=== PATIENT | male | born 1945 | race Caucasian/White ===

== ENCOUNTER 2025-06-14 08:55 | Outpatient (AMB) | payer OTHER, SELFPAY ==
--- NOTE | 2025-06-14 08:57 | MHC.PC.OV ---
Vital Signs 06/14/25 08:59 Height 5 ft 8.11 in Weight 190 lb BMI 28.8 BP 160/77 H Respiration 16 Pulse 88 Pulse Source Pulse Oximeter Temp 97.8 F Temp Source Temporal Artery Scan Pulse Oximetry (%) 98 Oxygen Delivery Method Room Air Intake Visit Reasons: Establish Care/ Dr. Dowell Sales Department Manager Required: No Accompanied by: Self / Same As Patient Allergies No Known Allergies Allergy (Verified 06/14/25 08:57) Tobacco use date assessed: 06/14/25 Fall risk assessment: No Falls in past year Last assessed Fall Risk: 06/14/25 Dental Screening Dental Screen Date: 06/14/25 Did you have a dental visit in the last 12 months?: No Did you have a dental problem in the last 6 months where you did not have access to dental care?: No Was dental information given to patient?: Patient has dentist (pt has dentures) COUNT INCLUDES [facility] Medical History (Updated 06/14/25 @ 09:39 by Eduardo Alcantar MD) COPD (chronic obstructive pulmonary disease) Essential hypertension Atrial fibrillation Family History (Updated 06/14/25 @ 09:05 by KRAIG Che) Father No problems noted. Mother Meningitis Social History (Updated 06/14/25 @ 09:06 by KRAIG Che) Housing: Apartment Alcohol intake: current Alcohol intake frequency: does not drink Patient Tobacco Use Status: Former Tobacco user service: No Current occupational status: retired Cognitive needs: No Hearing needs: Yes (b/l hearing aids ) Vision needs: Yes (rx glasses) Questionnaire PHQ-9 Over the last 2 weeks, how often have you been bothered by any of the following problems? 1. Little interest or pleasure in doing things: not at all 2. Feeling down, depressed, or hopeless: not at all 3. Trouble falling or staying asleep, or sleeping too much: not at all 4. Feeling tired or having little energy: not at all 5. Poor appetite or overeating: not at all 6. Feeling bad about yourself - or that you are a failure or have let yourself or your family down: not at all 7. Trouble concentrating on things, such as reading the newspaper or watching television: not at all 8. Moving or speaking so slowly that other people could have noticed. Or the opposite - being so fidgety or restless that you have been moving around a lot more than usual: not at all 9. Thoughts that you would be better off or of hurting yourself in some way: not at all Total score: 0 Source: Developed by Drs. Kit Tan, Zuleika Lopez, Minor Velasquez and colleagues, with an educational pritesh from [employer]. Thrive Questionnaire Date Thrive assessed: 06/14/25 I am a: Patient What is your living situation today?: I have a steady place to live Within the past 12 months, did the food you bought not last and you didn't have the money to get more?: Never true Within the past 12 months, did you worry whether your food would run out before you got money to buy more?: Never true Do you have trouble paying for medicines?: No Do you have trouble getting transportation to medical appointments?: No Do you have trouble paying your heating and electricity bill?: No Do you have trouble taking care of your child, family member or friend?: No Do you have trouble with day-to-day activities such as bathing, preparing meals, shopping, managing finances, etc.?: No Are you currently unemployed and looking for a job?: No Are you interested in more education?: No Please select the resources that you would like help with: None THRIVE Score: 0 AUDIT C Alcohol Use Questionnaire (AUDIT-C) 1. How often do you have a drink containing alcohol?: Never 3. How often do you have six or more drinks on one occasion?: Never Total Score: 0 TL-7 AMB Questionnaire TL-7 Date TL - 7 assessed: 06/14/25 Feeling nervous, anxious, or on edge: 0 = Not at all Not being able to stop or control worryin = Not at all Worrying too much about different things: 0 = Not at all Trouble relaxin = Not at all Being so restless that it is hard to sit still: 0 = Not at all Becoming easily annoyed or irritable: 0 = Not at all Feeling afraid as if something awful might happen: 0 = Not at all Total TL-7 score (0-4 normal; 5-9 mild; 10-14 moderate; 15-21 severe): 0 Source: Developed by Drs. Kit Tan, Zuleika Lopez, Minor Velasquez and colleagues, with an educational pritesh from [employer]. Physical exam (Primary Care) Vital Signs: Last Vital Signs Temp 97.8 F 06/14/25 08:59 Pulse 88 06/14/25 08:59 Resp 16 06/14/25 08:59 BP 160/77 H 06/14/25 08:59 Pulse Ox 98 06/14/25 08:59 Oxygen Delivery Method Room Air 06/14/25 08:59 BMI result Body Mass Index 28.8 Tobacco/Smoking Status: Tobacco use Status Tobacco use date assessed 06/14/25 06/14/25 09:11 Patient Tobacco Use Status Former Tobacco user 06/14/25 09:11 PHQ-9: PHQ-9 Score PHQ-9: Total score 0 06/14/25 09:11 Thrive Assessment: Date of Thrive Assessment Date Thrive assessed 06/14/25 06/14/25 09:11 Coding Level of Care Code New Pt Level 4 (74736) Complex EM visit Add On G2211 Diagnoses COPD (chronic obstructive pulmonary disease) J44.9 Essential hypertension I10 Atrial fibrillation I48.91 Assessment & Plan Assessment & Plan (1) COPD (chronic obstructive pulmonary disease): Code(s): J44.9 - Chronic obstructive pulmonary disease, unspecified Category: Medical Plan: Budesonide called in. Pulmonary consult as per patients request (2) Essential hypertension: Code(s): I10 - Essential (primary) hypertension Category: Medical Plan: Metoprolol increased to 100 mg once a day (3) Atrial fibrillation: Comment: xarelto is very expensive, will try eliquis Code(s): I48.91 - Unspecified atrial fibrillation Category: Medical Plan: History of Present Illness - The patient is a 79-year-old male presenting with management of pacemaker dependency, COPD, severe asthma, atrial fibrillation, and hypertension. - Pacemaker dependency: The patient requires regular monitoring of his pacemaker, which is currently being managed remotely from [place]. He is seeking local cardiology care for ongoing monitoring and management. - Chronic Obstructive Pulmonary Disease (COPD) and severe asthma: The patient has a history of severe asthma and COPD, requiring regular use of rescue inhalers and budesonide, which he has run out of. He has been relying on Ventolin and rescue inhalers due to the prescription. - Atrial fibrillation: The patient has a history of atrial fibrillation and is currently on apixaban, a blood thinner, following a heart ablation. He is exploring more affordable anticoagulant options due to the high cost of his current medication. - Hypertension: The patient has a history of hypertension, previously managed with 100 mg of metoprolol, which was reduced to 50 mg. He has experienced difficulty in controlling his blood pressure since the reduction and has been doubling his dose temporarily to manage spikes. Social History - The patient is a and lives alone in [place], having moved back from [place] after his 's passing four years ago. - He is a former smoker, having quit over 40 years ago. 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 Review of Systems - Respiratory: Reports dyspnea and reliance on rescue inhalers. Denies current smoking. - Cardiovascular: Reports history of atrial fibrillation and pacemaker dependency. Denies chest pain. - Genitourinary: Denies trouble urinating. - Neurological: Denies visual halos and issues with night driving. Physical Exam General: Cooperative and healthy appearing Nutritional Appearance: Well nourished Orientation/consciousness: Patient oriented x3 Limitations: No limitations Head: Normal to inspection General: Appearance normal, both eyes and all related structures Neck: Normal visual inspection Chest: Normal palpation of entire chest wall Respiratory: Severe asthma, COPD ormal respiratory effort Neurology: Patient oriented x3 Results Plan 1. Pacemaker Dependency - Refer to a local mechanical adjuster for ongoing pacemaker monitoring and management. 2. Chronic Obstructive Pulmonary Disease (Copd) - Prescribe budesonide for maintenance therapy and refer to a pharmacy district manager for further management. 3. Severe Asthma - Ensure availability of rescue inhalers and prescribe budesonide for maintenance therapy. 4. Atrial Fibrillation - Explore alternative anticoagulants such as Eliquis or Coumadin to manage costs. 5. Hypertension - Increase metoprolol dosage to 100 mg for better blood pressure control. Discussion Notes During the visit, we discussed the management of the patient's pacemaker dependency, COPD, severe asthma, atrial fibrillation, and hypertension. I recommended referring the patient to a local mechanical adjuster for pacemaker monitoring and a pharmacy district manager for COPD management. We also explored alternative anticoagulants to manage the cost of atrial fibrillation treatment. The patient was advised to increase the metoprolol dosage to 100 mg for better blood pressure control. I emphasized the importance of regular follow-ups and encouraged the patient to contact the office if any issues arise. Patient Instructions - Schedule an appointment with a local mechanical adjuster for pacemaker monitoring. - Visit a pharmacy district manager for COPD management. - Take budesonide as prescribed and ensure rescue inhalers are available. - Discuss anticoagulant options with the mechanical adjuster to manage atrial fibrillation costs. - Increase metoprolol dosage to 100 mg as advised. - Follow up with blood work at the designated lab location. Orders: Orders Basic Metabolic Panel Today I10 - Essential (primary) hypertension, I48.91 - Unspecified atrial fibrillation, J44.9 - Chronic obstructive pulmonary disease, unspecified Complete Blood Count no Diff Today I10 - Essential (primary) hypertension, I48.91 - Unspecified atrial fibrillation, J44.9 - Chronic obstructive pulmonary disease, unspecified Lipid Panel Today I10 - Essential (primary) hypertension, I48.91 - Unspecified atrial fibrillation, J44.9 - Chronic obstructive pulmonary disease, unspecified Liver Panel Today I10 - Essential (primary) hypertension, I48.91 - Unspecified atrial fibrillation, J44.9 - Chronic obstructive pulmonary disease, unspecified UA and rflx microscopic Today I10 - Essential (primary) hypertension, I48.91 - Unspecified atrial fibrillation, J44.9 - Chronic obstructive pulmonary disease, unspecified Erythrocyte Sedimentation Rate Today I10 - Essential (primary) hypertension, I48.91 - Unspecified atrial fibrillation, J44.9 - Chronic obstructive pulmonary disease, unspecified Thyroid Stimulating Hormone Today I10 - Essential (primary) hypertension, I48.91 - Unspecified atrial fibrillation, J44.9 - Chronic obstructive pulmonary disease, unspecified Prostate Specific Antigen Scr Today I10 - Essential (primary) hypertension, I48.91 - Unspecified atrial fibrillation, J44.9 - Chronic obstructive pulmonary disease, unspecified Referrals Cardiology Referral I10 - Essential (primary) hypertension, I48.91 - Unspecified atrial fibrillation, J44.9 - Chronic obstructive pulmonary disease, unspecified Pulmonology Referral G47.33 - Obstructive sleep apnea (adult) (pediatric) Medications: New apixaban (Eliquis) 5 mg PO BID 180 tabs 1RF
[2025-06-14 08:59] VITALS: BP 160/77; PULSE 88; RESP 16; TEMP 36.6; O2SAT 98; BMI 28.8
== END 2025-06-14 09:32 | disposition home or self-care (01) ==
LOC: HO.HMCSH 08:55
PROVIDERS: PCP Internal Medicine; Visit Provider Internal Medicine
DX: J44.9 Chronic obstructive pulmonary disease, unspecified (principal); I10 Essential (primary) hypertension; I48.91 Unspecified atrial fibrillation

== ENCOUNTER 2025-06-15 06:02 | Outpatient (REF) | payer OTHER, SELFPAY ==
[2025-06-15 10:11] LABS: Hematocrit 43.4 % (42.0-52.0); Hemoglobin 14.8 g/dl (14.0-18.0); Mean Corpuscular HGB Conc 34.1 g/dl (31.0-36.0); Mean Corpuscular Hemoglobin 31.0 pg (27.0-33.0); Mean Corpuscular Volume 90.8 fL (80.0-98.0); NRBC Abs Auto 0.000 X10*3/uL (0.0-0.012); NRBC Pct Auto 0.0 /100WBC (0.0-0.2); Platelet Count 169 X10*3/uL (160-400); Red Blood Count 4.78 X10*6/uL (4.60-5.80); White Blood Count 5.8 X10*3/uL (4.8-10.8)
[2025-06-15 10:39] LABS: Alanine Aminotransferase 15 U/L (0-40); Albumin Level 4.0 g/dL (3.5-5.0); Alkaline Phosphatase 98 U/L (39-117); Anion Gap 12 (12-20); Aspartate Amino Transferase 29 U/L (5-37); Blood Urea Nitrogen 11 mg/dL (9-16); Calcium 9.4 mg/dL (8.4-10.2); Carbon Dioxide 25 mmol/L (22-29); Chloride 110 mmol/L (96-108); Cholesterol 161 mg/dL (<200); Estimated Glomerular Filt Rate 57; HDL Cholesterol 40 mg/dL (>40); Potassium 4.7 mmol/L (3.3-5.1); Sodium 142 mmol/L (135-145); Total Protein 6.5 g/dL (6.5-8.0); Triglycerides 80 mg/dL (<150)
[2025-06-15 10:46] LABS: Appearance Urine Clear; Glucose Urine UA Negative (Negative); PH 5.0 (5.0-9.0); Specific Gravity - Urine 1.015 (1.005-1.025)
[2025-06-15 10:59] LABS: Thyroid Stimulating Hormone 0.42 uIU/mL (0.32-4.0)
== END 2025-06-15 06:03 | disposition home or self-care (01) ==
LOC: HO.HMGCLDS 06:02
PROVIDERS: PCP Internal Medicine; Visit Provider Internal Medicine
DX: I10 Essential (primary) hypertension (principal); I48.91 Unspecified atrial fibrillation; J44.9 Chronic obstructive pulmonary disease, unspecified; Z12.5 Encounter for screening for malignant neoplasm of prostate
CPT/HCPCS: 36415; 80048; 80061; 80076; 81003; 84153; 84443; 85027; 85652

== ENCOUNTER 2025-07-20 15:10 | Outpatient (AMB) | payer OTHER, SELFPAY ==
--- OUTSIDE RECORDS SUMMARY | 2014-09-20 20:00 | XMS_ITS | Continuity of Care Document ---
Author Organization [facility] Address [address] [place] [phone] Phone Care Team Providers Care Jaw Skinner Name Role Phone RCM, Rendering Unavailable Unavailable Allergies, Adverse Reactions, Alerts Substance Reaction Status Criticality No Known Allergies Active No Inform ation Advance Directives Directive Yes / No Effective Date File Name No Information Encounters Encounter Description Practice Location Reason(s) For Visit Diagnoses Date Provider Providers Copied on Encounter [facility], [address] [place] [address], [id number], tel:[phone] [facility] Vitreous degeneratio n, right eyeDry eye syndrome of right lacrimal glandAge-re lated nuclear cataract, right eye RCM Rendering. [address] [place] [address], [id number], [place]. tel:[phone] Family History Family Member Type Diagnosis Age At Onset Mother Biological Problem (finding) Fhx of diabetes me llitus Payers Payer name Insurance type Covered libertarian ID Authoriza tion(s) No Information Social History [...]
[2025-07-20 15:14] VITALS: BP 130/80; PULSE 80; O2SAT 97; BMI 28.6
--- NOTE | 2025-07-20 15:14 | A.OFFVIS_ITS ---
Vital Signs 07/20/25 15:14 Height 5 ft 8.11 in Weight 188 lb 7.924 oz BMI 28.6 BP 130/80 Blood Pressure Location Lt brachial Position Sitting Pulse 80 Pulse Source Pulse Oximeter Pulse Oximetry (%) 97 Oxygen Delivery Method Room Air Intake Visit Reasons: Obstructive sleep apnea Intake Note: pt is here as a new patient, has post nasal drip, and some coughing during the day, and at night he cannot sleep due to wheeze and coughing trying to get phelgm out., shortness of breath with doing things. Report Specialist Required: No Calibration Checker: Calibration Checker offered & declined Allergies No Known Allergies Allergy (Verified 07/20/25 16:46) Medication List - Last Reconciled 07/20/25 by Jason Mahoney MD albuterol sulfate 90 mcg/actuation (Ventolin HFA) 2 puffs inhalation Q6H PRN 90 days budesonide 0.5 mg (2 mL) inhalation BID budesonide-formoterol 160-4.5 mcg/actuation 2 puffs inhalation BID 30 days fluticasone propionate 50 mcg/actuation 2 sprays intranasal DAILY levalbuterol tartrate 45 mcg/actuation 2 inhalations inhalation Q6H levalbuterol tartrate 45 mcg/actuation 2 puffs inhalation Q4-6H PRN 30 days metoprolol succinate ER 100 mg PO DAILY montelukast 10 mg PO DAILY rivaroxaban (Xarelto) 20 mg PO DAILY tamsulosin 0.4 mg PO DAILY Do you need a note to return to daycare/school/sports/work: No HPI HPI Obstructive sleep apnea: Details: THIS 80 YEARS OLD GENTLEMAN IS THE BEING SEEN 1ST TIME FOR PULMONARY EVALUATION AND ONGOING MANAGEMENT. HE USED TO LIVE IN [place], FOR MANY YEARS ON THE [facility] AND ABOUT 3 MONTHS BEFORE COMING OVER HERE HE HAD MOVED TO [facility]. HE HAS PAST HISTORY OF SMOKING FOR 30 YEARS BUT HE QUIT ABOUT 40 YEARS AGO. HE HAS BEEN TREATED FOR CHRONIC OBSTRUCTIVE PULMONARY DISEASE, PRESENTING IN THE FORM OF INTERMITTENT COUGH SHORTNESS OF BREATH ON EXERTION AND SOME WHEEZING. HIS REGIMEN INCLUDED USE OF BUDESONIDE 0.5 MG IN THE NEBULIZER B.I.D., AND LEVALBUTEROL 45 2 PUFFS Q 4-6 HOURS P.R.N.. HE ALSO HAS ALBUTEROL HFA ON HAND, AND WAS QUESTIONING WHICH 1 HE SHOULD USE A RESCUE INHALER. HE CLAIMS THAT SINCE HE MOVED TO [place], HE HAS INCREASED COUGH AND GETS MORE SHORT OF BREATH ON WALKING AROUND, AND HAS DIFFICULTY IN SLEEPING AT NIGHT BECAUSE OF BEING AWAKENED BY COUGH AND WHEEZING. THIS HE ATTRIBUTES TO CHANGE IN THE CLIMATE . HE HAS HAD PULMONARY FUNCTION TESTS, IN [place]. . BUT WE DO NOT HAVE ANY RESULTS HE ALSO HAS BEEN DIAGNOSED TO HAVE OBSTRUCTIVE SLEEP APNEA YEARS AGO AND USE TO BE ON BIPAP. BACK IN 2021 HE HAD POLYSOMNOGRAM STUDY WHICH SHOWED THAT SLEEP APNEA WAS ONLY MILD WITH TOTAL SLEEP TIME RDI 6.6. HE WAS GIVEN THE OPTION OF NOT USING BIPAP, AND JUST TRY TO SLEEP IN LATERAL POSITION. THE PATIENT CLAIMS THAT HE JUST CAN NOT SLEEP ON HIS BACK ANYWAY, HE HAS BEEN SLEEPING OKAY AND DOES GET GOOD SLEEP AT NIGHT, EXCEPT FOR WAKENING DUE TO COUGH AND WHEEZING. HE ALSO HAS SYMPTOMS OF ALLERGIC RHINITIS AND USES FLUTICASONE PROPIONATE 50 2 SPRAY IN EACH NOSTRIL DAILY. HE HAS CHRONIC ATRIAL FIBRILLATION AND HYPERTENSION WHICH ARE CONTROLLED WITH MEDICATIONS. [facility] Medical History Allergic rhinitis KARENA (obstructive sleep apnea) COPD (chronic obstructive pulmonary disease) Essential hypertension Atrial fibrillation Family History Father No problems noted. Mother Meningitis Social History Housing: Apartment Alcohol intake: current Alcohol intake frequency: does not drink Patient Tobacco Use Status: Former Tobacco user service: No Current occupational status: retired Cognitive needs: No Hearing needs: Yes (b/l hearing aids ) Vision needs: Yes (rx glasses) Review of Systems Const All systems reviewed & are unremarkable except as noted in HPI and below Eyes Reports no additional complaints ENT Reports nasal congestion and Reports nasal discharge Card Denies chest pain, Denies syncope, Reports irregular heart rhythm and Denies leg edema Resp Reports as per HPI GI Reports no additional complaints Reports nocturia (CONTROLLED WITH FLOMAX) Musc Reports no additional complaints Skin/Breast Reports erythema (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 )) Neuro Reports no additional complaints and Denies syncope Psych Reports no additional complaints Endo Reports no additional complaints Saroj/Lymph Reports no additional complaints Physical Exam Vital Signs: Last Vital Signs Pulse 80 07/20/25 15:14 BP 130/80 07/20/25 15:14 Pulse Ox 97 07/20/25 15:14 Oxygen Delivery Method Room Air 07/20/25 15:14 BMI result Body Mass Index 28.6 Const General: comfortable, no acute distress, alert and awake Orientation/consciousness: patient oriented x3 HEENT Head: Yes normal to inspection General nose exam: No nasal polyps present and No nasal discharge present Face and sinus: Yes sinuses nontender Mouth: oropharynx normal Throat: Yes posterior oropharynx normal Eyes General: appearance normal, both eyes and all related structures Neck Neck: Yes normal visual inspection, Yes no lymphadenopathy, Yes trachea midline and Yes no JVD Thyroid: Thyroid normal Chest Chest palpation & inspection: normal inspection of the chest, normal palpation of entire chest wall and no tenderness Resp Other: PERCUSSION NOTE IS RESONANT. BREATH SOUNDS ARE DISTANT WITH PROLONGED EXPIRATORY PHASE. A FEW EXPIRATORY WHEEZES OVER THE LOWER PARTS OF THE CHEST. Cardio Palpation: normal PMI Rate: regular rate Rhythm: regular rhythm Heart sounds: no gallops and no murmurs GI Palpation (GI): Soft to palpation, nontender, No hepatosplenomegaly present and no masses Auscultation: normal bowel sounds Back/Spine/Pelvis Thoracic/Lumbar Spine: thoracic and lumbar spine normal to inspection Skin General skin exam: other (CHRONIC GRANULOMA ANNULARE RASH ON THE BACK .) Neuro General: patient oriented x3 and no focal motor deficits Cranial nerves: Yes CN's II-XII intact bilaterally Extrem General: Yes normal to inspection, Yes no clubbing, cyanosis or edema and Yes no calf tenderness Psych Appearance: grossly normal and well kempt Speech and movement: Normal speech and movement present Assessment & Plan Assessment & Plan (1) COPD (chronic obstructive pulmonary disease): Comment: HE DOES HAVE FEATURES OF CHRONIC OBSTRUCTIVE PULMONARY DISEASE. WE WILL TRY TO GET RESULTS OF HIS RECENT PULMONARY FUNCTION TEST IN [place]., OTHERWISE WILL. HAVE TO DO COMPLETE PFT OVER HERE HIS SYMPTOMS ARE NOT WELL CONTROLLED AT THIS TIME, ESPECIALLY AT NIGHT. THIS MAY BE DUE TO CHANGE IN THE CLIMATE FOR HIM. ALSO HE IS NOT ON A LONG-ACTING BRONCHODILATOR AGENT . Code(s): J44.9 - Chronic obstructive pulmonary disease, unspecified Category: Medical Plan: TALKING TO HIM HE HAS NO DIFFICULTY IN USING THE INHALERS. I THINK HE WILL BE BETTER OF WITH USE OF BUDESONIDE-FORMOTEROL HFA 160-4.5 2 PUFFS B.I.D.. THIS WILL PROVIDE HIM SUSTAINED BRONCHODILATOR EFFECT AND HE WOULD BE. LESS SYMPTOMATIC HAS RESCUE INHALER HE SHOULD USE LEVALBUTEROL HFA 2 PUFFS Q 4-6 HOURS PRN. AND HE IS ADVISED TO STOP USING ALBUTEROL. (2) KARENA (obstructive sleep apnea): Comment: HE DOES HAVE PAST HISTORY OF OBSTRUCTIVE SLEEP APNEA AND USING BIPAP BUT SINCE 2021 HE HAS NOT USED IT. HIS POLYSOMNOGRAM STUDY IN 2021 SHOWED THAT HE HAD ONLY MILD DEGREE OF SLEEP APNEA. HE CLAIMS THAT HE HAS BEEN SLEEPING WELL WITHOUT THE CPAP Code(s): G47.33 - Obstructive sleep apnea (adult) (pediatric) Category: Medical Plan: INSTRUCTED THAT HE SHOULD AVOID SLEEPING IN SUPINE POSITION. OTHERWISE NO NEED TO USE CPAP AT THIS TIME (3) Allergic rhinitis: Comment: LONGSTANDING HISTORY OF NASAL CONGESTION AND POSTNASAL DISCHARGE. SYMPTOMS GOT SOMEWHAT WORSE WHEN HE MOVED TO [facility]. NOW WELL CONTROLLED WITH THE USE OF FLONASE Code(s): J30.9 - Allergic rhinitis, unspecified Category: Medical Plan: CONTINUE USING FLONASE-52 SPRAYS IN EACH NOSTRIL DAILY MAY USE OTC ANTIHISTAMINIC AGENT SUCH LORATADINE OR CETIRIZINE 10 MG ONCE A DAY P.R.N. Medications: New budesonide-formoterol 160-4.5 mcg/actuation 2 puffs inhalation BID 10.2 grams 3R F COPD 30 days levalbuterol tartrate 45 mcg/actuation 2 puffs inhalation Q4-6H PRN 15 grams 3RF shortness of breath or wheezing 30 days Coding Level of Care Code New Pt Level 4 (97981) Diagnoses COPD (chronic obstructive pulmonary disease) J44.9 KARENA (obstructive sleep apnea) G47.33 Allergic rhinitis J30.9
== END 2025-07-20 15:57 | disposition home or self-care (01) ==
LOC: HO.HPS 15:11
PROVIDERS: PCP Internal Medicine; Visit Provider Internal Medicine
DX: J44.9 Chronic obstructive pulmonary disease, unspecified (principal); G47.33 Obstructive sleep apnea (adult) (pediatric); J30.9 Allergic rhinitis, unspecified
CPT/HCPCS: 99204

== ENCOUNTER 2025-07-28 10:16 | Outpatient (AMB) | payer OTHER, SELFPAY ==
--- NOTE | 2025-07-28 10:32 | A.OFFVIS_ITS ---
Vital Signs 07/28/25 10:33 Height 5 ft 8 in Weight 187 lb 6.287 oz BMI 28.5 BP 122/68 Blood Pressure Location Lt brachial Position Sitting Pulse 80 Pulse Source Monitor Intake Visit Reasons: hx of afib hypertension Allergies sulfamethoxazole (From Bactrim) Adverse Reaction (Intermediate, Verified 07/28/25 10:41) hives trimethoprim (From Bactrim) Adverse Reaction (Intermediate, Verified 07/28/25 10:41) hives Medication List - Last Reconciled 07/28/25 by Nicko Zaman MD albuterol sulfate 90 mcg/actuation (Ventolin HFA) 2 puffs inhalation Q6H PRN 90 days budesonide 0.5 mg (2 mL) inhalation BID budesonide-formoterol 160-4.5 mcg/actuation 2 puffs inhalation BID 30 days fluticasone propionate 50 mcg/actuation 2 sprays intranasal DAILY metoprolol succinate ER 100 mg PO DAILY montelukast 10 mg PO DAILY rivaroxaban (Xarelto) 20 mg PO DAILY tamsulosin 0.4 mg PO DAILY HPI Comments Details: Kit is relocating from [place] and would like to establish cardiac care locally. According to patient, he has had atrial fibrillation for many years and has had ablation for the same. Additionally, he underwent a pacemaker geraldo cement few years back. Within limits of his activity, for the most part he is doing fine. He has got no symptoms like exertional angina or shortness of breath or palpitations extra. He does have a lot of cough but also listed to have COPD. For medications, he is on metoprolol and Xarelto. According to him, his atrial fibrillation burden was very high in the 90s but currently much lower. However, there is no data to verify this. [facility] Medical History Allergic rhinitis KARENA (obstructive sleep apnea) COPD (chronic obstructive pulmonary disease) Essential hypertension Atrial fibrillation Family History Father No problems noted. Mother Meningitis Social History Housing: Apartment Alcohol intake: current Alcohol intake frequency: does not drink Patient Tobacco Use Status: Former Tobacco user service: No Current occupational status: retired Cognitive needs: No Hearing needs: Yes (b/l hearing aids ) Vision needs: Yes (rx glasses) Review of Systems Const Denies weakness ENT Denies dizziness Card Denies chest pain, Denies chest pain with activity, Denies syncope, Denies rapid heart rate, Denies pedal edema, Denies edema, Denies leg edema, Denies lightheadedness, Denies palpitations, Reports dyspnea, Denies dyspnea on exertion and Denies orthopnea Resp Denies cough, Reports dyspnea and Denies dyspnea on exertion GI Denies hematochezia and Denies change in stool character Musc Denies abnormal gait, Denies muscle cramps, Denies muscle weakness, Denies numbness, Denies radiating pain into limb and Denies tingling Neuro Denies abnormal gait, Denies dizziness, Denies syncope, Denies numbness, Denies tingling and Denies weakness Endo Denies palpitations Physical Exam Vital Signs: Last Vital Signs Pulse 80 07/28/25 10:33 BP 122/68 07/28/25 10:33 BMI result Body Mass Index 28.5 Const General: comfortable and no acute distress Orientation/consciousness: patient oriented x3 HEENT Other: Unremarkable Head: Yes normal to inspection Neck Neck: Yes normal visual inspection Chest Chest palpation & inspection: normal inspection of the chest Resp Auscultation: rhonchi and diminished lung sounds Cardio Palpation: normal PMI Heart sounds: S1 normal heart sound present, S2 normal heart sound present, no gallops, no murmurs and no rubs GI Palpation (GI): Soft to palpation Back/Spine/Pelvis Other: unremarkable Skin General skin exam: no rashes or lesions noted Neuro General: patient oriented x3 Extrem General: Yes normal to inspection Psych Mental Status: mental status grossly normal Office Procedures EKG Details: EKG with ventricular paced rhythm at 80/Min; atrial rhythm is not clear. [id number], Complete Assessment & Plan Assessment & Plan (1) Atrial fibrillation: Comment: xarelto is very expensive, will try eliquis Code(s): I48.91 - Unspecified atrial fibrillation Category: Medical Plan: Patient, history of ablation. Unclear as to the rhythm on the EKG today. We will need device interrogation. Remains on beta-blockers and Xarelto. No changes made. (2) Pacemaker: Code(s): Z95.0 - Presence of cardiac pacemaker Category: Medical Plan: We will set up device ectopy with next visit. Remote pacemaker will need to be transferred. Plan Discussion Notes I discussed with the patient the need for an echocardiogram to assess cardiac function and the importance of integrating his pacemaker into our system. We rev iewed his current medications, including metoprolol and Xarelto. Patient was informed and verbally consented to the use of an ambient scribe for clinic note documentation during this visit. Orders: Orders CA echo transthoracic complete Today I48.91 - Unspecified atrial fibrillation Patient Instructions: - Continue taking metoprolol and Xarelto as prescribed. - Schedule an echocardiogram for baseline cardiac assessment. - Ensure pacemaker records are transferred to the [facility]. Coding Level of Care Code New Pt Level 4 (69040) Complex EM visit Add On G2211 Diagnoses Atrial fibrillation I48.91 Pacemaker Z95.0 CPT Codes EKG - CPT: 50179-[id number], Complete ([id number])
[2025-07-28 10:33] VITALS: BP 122/68; PULSE 80; BMI 28.5
== END 2025-07-28 11:06 | disposition home or self-care (01) ==
LOC: HO.HCS 10:16
PROVIDERS: PCP Internal Medicine; Visit Provider Internal Medicine
DX: I48.91 Unspecified atrial fibrillation (principal); Z95.0 Presence of cardiac pacemaker
CPT/HCPCS: 93010; 99204; G2211

== ENCOUNTER → 2025-07-28 10:16 | Outpatient (BNVA) | payer OTHER, SELFPAY | PROVIDERS: PCP Internal Medicine; Visit Provider Internal Medicine | DX: I48.91 Unspecified atrial fibrillation (principal); Z95.0 Presence of cardiac pacemaker | CPT/HCPCS: 93005 ==

== ENCOUNTER → 2025-08-17 09:04 | Outpatient (REF) | payer OTHER, SELFPAY ==
--- OUTSIDE RECORDS SUMMARY | 2014-09-20 20:00 | XMS_ITS | Continuity of Care Document ---
Author Organization [facility] Address [address] [place] [phone] Phone Care Team Providers Care Customer Solutions Teammate Name Role Phone RCM, Rendering Unavailable Unavailable Allergies, Adverse Reactions, Alerts Substance Reaction Status Criticality No Known Allergies Active No Inform ation Advance Directives Directive Yes / No Effective Date File Name No Information Encounters Encounter Description Practice Location Reason(s) For Visit Diagnoses Date Provider Providers Copied on Encounter [facility], [address] [place] [address], [id number], tel:[phone] [facility] [place] [facility] Location Vitreous degeneratio n, right eyeDry eye syndrome of right lacrimal glandAge-re lated nuclear cataract, right eye RCM Rendering. [address] [place] [address], [id number], [place]. tel:[phone] Family History Family Member Type Diagnosis Age At Onset Mother Biological Problem (finding) Fhx of diabetes me llitus Payers Payer name Insurance type Covered constitution party ID Authoriza tion(s) No Information Social History Type Description Quantity Date Captured Comments Alcohol Use Details Unknown Caffeine Use Details Unknown Tobacco Use Status Former smoker Smoking Status Former smoker Non-Smoking Tobacco Use Details : No Details Available : No Details Available Sex Male Chief Complaint And Reason For Visit No Information Reason For Referral Reason For Referral No Information History Of Present Illness Encounter Date Complaint History Of Prese nt Illness No Information Functional Status Date Functional Assessmen t No Information Instructions Date Instruction Additional Infor mation Impression/Plan Related to Diagn osis Description: PVD Vitreous Degeneration OU \nDiagnosis Code: 379.21 Impression/Plan Related to Diagn osis Description: NS Cataract, Nuclear Sclerotic OU \nDiagnosis Code: 366.16 Impression/Plan Related to Diagn osis Description: GUERDA Tear Film Insufficiency (unspecified) OU \nDiagnosis Code: 375.15 Assessments Type Assessment Date No Information Patient Care Teams Name Effective Dates (start - stop) Status Members No Information
--- NOTE | 2025-08-17 09:07 | CA_ITS ---
Transthoracic Echocardiogram Patient (Last, First, Middle): Kit Park, Gender: M Date of : 1945 Age: 80 Procedure Date: 08/17/2025 Procedure Type: Transthoracic Echocardiogram Location: OP Height: 172.72 cm Weight: 84.82 kg BSA: 1.99 m2 Heart Rate: bpm BP: 122 / 68 mmHg Dressmaking Teacher: HERMILO Referring MD: Nicko Zaman MD Symptoms: I48.91 - Unspecified atrial fibrillation Study Quality: Fair, contrast ECG Rhythm: Ventriculary paced rhythm Conclusions: - The left ventricular systolic function is moderately decreased. The visually estimated ejection fraction is between 30-35%. - No obvious valvular pathology seen on this study. Findings Procedure Information Contrast agent, definity, is being given per protocol without apparent complications. Left Ventricle Normal left ventricular cavity size. There is normal left ventricular wall thickness. The left ventricular systolic function is moderately decreased. The visually estimated ejection fraction is between 30-35%. Diastolic function is indeterminate on the basis of available data. There is mild septal asymmetric hypertrophy. Right Ventricle Normal right ventricular cavity size. There is mildly decreased right ventricular systolic function. There is a pacemaker wire seen in the right ventricle. Atria The left atrium is mildly dilated. The right atrium is severely dilated. Aortic Valve There is a normal trileaflet aortic valve. There is mild calcification of the aortic valve. There is no aortic valve stenosis. There is trace (trivial) aortic valve regurgitation. Mitral Valve The mitral valve appears normal. There is no mitral valve regurgitation. There is no mitral valve stenosis. Pulmonic Valve The pulmonic valve is likely normal. Tricuspid Valve There is mild tricuspid valve regurgitation. Mild pulmonary hypertension is present. Great Vessels The asc aorta is normal in size. Venous The inferior vena cava is normal in size and collapses greater than 50% with inspiration. Pericardium/Pleural There is no evidence of pericardial effusion. Prior Study Comparison No prior study available for comparison. Recommendations, Care & Conclusions No obvious valvular pathology seen on this study. Measurements 2D Linear Measurements IVSd: 1.03 0.6-0.9/0.6-1.0 cm LVIDd: 4.30 3.9-5.3/4.2-5.9 cm LVIDd Index: 2.16 2.4-3.2/2.2-3.1 cm/m2 LVIDs: 3.27 2.0-3.6 cm LVPWd: 0.86 0.7-1.1 cm LA Diam: 4.30 2.7-3.8/3.0-4.0 cm LAIDs Index: 2.16 1.5-2.3 cm/m2 LV Mass: 164.34 67-162/88-224 g LV Mass Index: 82.58 43-95/49-115 g/m2 LVOT Diam: 2.50 3.0+(-)1.3 cm 2D Systolic Function EF 4C: 45.90 >55% EF 2C: 40.10 >55% EF BiP: 42.60 >55% Mitral Valve MV Pk E: 0.99 MV Decel Time: 158.00 E'Lateral: 9.68 E'Medial: 6.64 E/E' Med: 14.90 E/E' Lat: 10.20 PHT: 46.00 MVA PHT: 4.78 Decel Bartholomew: 6.27 Aortic Valve AoV Pk Seven: 0.77 AoV Mn Seven: 0.57 AoV VTI: 0.16 AoV Pk Grad: 2.00 Aov Mn Grad: 1.00 KENTON Cont.VTI: 3.01 LVOT LVOT Pk Seven: 0.48 LVOT Mn Seven: 0.35 LVOT VTI: 0.10 LVOT Pk Grad: 1.00 LVOT Mn Grad: 1.00 LVOT Diam: 2.50 LVOT Area: 4.91 Diastolic Function MV Pk E: 0.99 E'Medial: 6.64 E/E' Med: 14.90 E' Laterial: 9.68 E/E' Lat: 10.20 Right Ventricle TAPSE (mm): 18.60 TVS' Seven: 9.25 Tricuspid Valve TR Pk Seven: 3.05 TR Pk Grad: 37.00 RA Press: 3.00 RVSP: 40.00 Great Vessels Aorta Sinus of Valsalva: 3.67 2.0-3.5 cm Ao Asc: 3.40 2.1-3.4 cm Updated in Other Vendor System with Status of Final Nicko Zaman MD electronically signed on 08/18/2025 5:18:34 PM with status of Final
== END ==
LOC: HO.CARD 09:04
PROVIDERS: PCP Internal Medicine; Visit Provider Internal Medicine
DX: I48.91 Unspecified atrial fibrillation (principal)
CPT/HCPCS: 93306; Q9957

== ENCOUNTER → 2025-08-17 09:07 | Outpatient (BNV) | payer OTHER, SELFPAY | PROVIDERS: PCP Internal Medicine; Visit Provider Internal Medicine | DX: I42.2 Other hypertrophic cardiomyopathy (principal); I48.91 Unspecified atrial fibrillation | CPT/HCPCS: 93306 ==

== ENCOUNTER 2025-08-30 14:00 | Outpatient (AMB) | payer OTHER, SELFPAY ==
--- NOTE | 2025-08-30 14:16 | MHC.OFFVIS ---
Vital Signs 08/30/25 14:17 Height 5 ft 8.11 in Weight 187 lb 6.287 oz BMI 28.4 BP 122/70 Blood Pressure Location Lt brachial Position Sitting Pulse 77 Pulse Source Pulse Oximeter Pulse Oximetry (%) 96 Oxygen Delivery Method Room Air Intake Visit Reasons: Obstructive sleep apnea Intake Note: pt is here for follow up and states he is feeling okay still short of breath, pt had echo It Trainee Required: No Cloth Bleaching Range Tender: Cloth Bleaching Range Tender offered & declined Allergies sulfamethoxazole (From Bactrim) Adverse Reaction (Intermediate, Verified 08/30/25 14:39) hives trimethoprim (From Bactrim) Adverse Reaction (Intermediate, Verified 08/30/25 14:39) hives Medication List - Last Reconciled 08/30/25 by Jason Mahoney MD budesonide 0.5 mg (2 mL) inhalation BID fluticasone propionate 50 mcg/actuation 2 sprays intranasal DAILY levalbuterol tartrate 45 mcg/actuation 2 inhalations inhalation Q4-6H PRN metoprolol succinate ER 100 mg PO DAILY montelukast 10 mg PO DAILY rivaroxaban (Xarelto) 20 mg PO DAILY tamsulosin 0.4 mg PO DAILY Do you need a note to return to daycare/school/sports/work: No HPI HPI Obstructive sleep apnea: Details: JOSE IS 80 YEARS OLD 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 HE HAS HISTORY OF OBSTRUCTIVE SLEEP APNEA IN THE REMOTE PAST BUT HE OVERCAME HIS SLEEP APNEA WITH SIGNIFICANT WEIGHT LOSS. SO HE STOPPED USING THE CPAP MORE THAN 10 YEARS AGO. HE SLEEPS GOOD NO PROBLEM AND HAS NO DAYTIME SLEEPINESS. HE MONITORS HIS O2 SAT DURING, THE NIGHT WITH HIS UPPER WATCH AND IT IS BETWEEN 95-96% THROUGHOUT THE NIGHT. FOR HIS CHRONIC OBSTRUCTIVE PULMONARY DISEASE HE WAS HAVING RECURRENT THRUSH WHEN USING THE SYMBICORT BUT NOW HE HAS BEEN ON BUDESONIDE 0.5 MG SOLUTION IN THE NEBULIZER WHICH HE USES TWICE A DAY AND TOLERATES IT WELL. HE DOES HAVE LEVALBUTEROL INHALER AND USES IT P.R.N. FOR ANY TIGHT FEELING OR WHEEZING. HE DENIES ANY BOUTS OF COUGH OR WHEEZING AND SHORTNESS OF BREATH ON EXERTION IS MAINLY DUE TO HIS CARDIAC ISSUES. HE HAS MILD NASAL CONGESTION OFF AND ON AND THAT IS CONTROLLED WITH MONTELUKAST 10 MG DAILY [facility] Medical History (Updated 08/30/25 @ 14:53 by Jason Mahoney MD) Pulmonary hypertension Allergic rhinitis KARENA (obstructive sleep apnea) COPD (chronic obstructive pulmonary disease) Essential hypertension Atrial fibrillation Family History Father No problems noted. Mother Meningitis Social History Housing: Apartment Alcohol intake: current Alcohol intake frequency: does not drink Patient Tobacco Use Status: Former Tobacco user service: No Current occupational status: retired Cognitive needs: No Hearing needs: Yes (b/l hearing aids ) Vision needs: Yes (rx glasses) Review of Systems Const All systems reviewed & are unremarkable except as noted in HPI and below Eyes Reports no additional complaints ENT Reports nasal congestion and Reports nasal discharge Card Denies chest pain, Denies syncope, Reports irregular heart rhythm and Denies leg edema Resp Reports as per HPI GI Reports no additional complaints Reports nocturia (CONTROLLED WITH FLOMAX) Musc Reports no additional complaints Skin/Breast Reports erythema (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 )) Neuro Reports no additional complaints and Denies syncope Psych Reports no additional complaints Endo Reports no additional complaints Saroj/Lymph Reports no additional complaints Physical Exam Vital Signs: Last Vital Signs Pulse 77 08/30/25 14:17 BP 122/70 08/30/25 14:17 Pulse Ox 96 08/30/25 14:17 Oxygen Delivery Method Room Air 08/30/25 14:17 BMI result Body Mass Index 28.4 Const General: comfortable, no acute distress, alert and awake Orientation/consciousness: patient oriented x3 HEENT Head: Yes normal to inspection General nose exam: No nasal polyps present and No nasal discharge present Face and sinus: Yes sinuses nontender Mouth: oropharynx normal Throat: Yes posterior oropharynx normal Eyes General: appearance normal, both eyes and all related structures Neck Neck: Yes normal visual inspection, Yes no lymphadenopathy, Yes trachea midline and Yes no JVD Thyroid: Thyroid normal Chest Chest palpation & inspection: normal inspection of the chest, normal palpation of entire chest wall and no tenderness Resp Other: PERCUSSION NOTE IS RESONANT. BREATH SOUNDS ARE DISTANT WITH PROLONGED EXPIRATORY PHASE. NO WHEEZES OR RHONCHI ARE HEARD TODAY. Cardio Palpation: normal PMI Rate: regular rate Rhythm: regular rhythm Heart sounds: no gallops and no murmurs GI Palpation (GI): Soft to palpation, nontender, No hepatosplenomegaly present and no masses Auscultation: normal bowel sounds Back/Spine/Pelvis Thoracic/Lumbar Spine: thoracic and lumbar spine normal to inspection Skin General skin exam: other (CHRONIC GRANULOMA ANNULARE RASH ON THE BACK .) Neuro General: patient oriented x3 and no focal motor deficits Cranial nerves: Yes CN's II-XII intact bilaterally Extrem General: Yes normal to inspection, Yes no clubbing, cyanosis or edema and Yes no calf tenderness Psych Appearance: grossly normal and well kempt Speech and movement: Normal speech and movement present Results Reviewed Results Reviewed: HE WANTED ME TO REVIEW THE RESULTS OF HIS ECHOCARDIOGRAM WITH HIM. AND I HAVE READ THE REPORT OF ECHOCARDIOGRAM, POINTING OUT THAT HIS EJECTION FRACTION IS MODERATELY LOW ( 30-35 % ) AND PULMONARY PRESSURE IS LITTLE HIGH 40 I EXPLAINED TO HIM THAT THERE IS NO SIGNIFICANT VALVULAR DISEASE . Assessment & Plan Assessment & Plan (1) COPD (chronic obstructive pulmonary disease): Comment: HE DOES HAVE FEATURES OF CHRONIC OBSTRUCTIVE PULMONARY DISEASE. HIS SYMPTOMS ARE NOT WELL CONTROLLED AT THIS TIME, ESPECIALLY AT NIGHT. THIS MAY BE DUE TO CHANGE IN THE CLIMATE FOR HIM. HE SAY IS THE ADDITION OF BUDESONIDE SOLUTION IN THE NEBULIZER TWICE A DAY HAS IMPROVED HIS BREATHING. Code(s): J44.9 - Chronic obstructive pulmonary disease, unspecified Category: Medical Plan: CONTINUE BUDESONIDE 0.5 MG IN THE NEBULIZER B.I.D.. USE LEVALBUTEROL 2 PUFFS Q. 6 HOURS ONLY P.R.N. (2) Allergic rhinitis: Comment: LONGSTANDING HISTORY OF NASAL CONGESTION AND POSTNASAL DISCHARGE. SYMPTOMS GOT SOMEWHAT WORSE WHEN HE MOVED TO [facility]. NOW WELL CONTROLLED WITH THE USE OF FLONASE Code(s): J30.9 - Allergic rhinitis, unspecified Category: Medical Plan: MONTELUKAST 10 MG DAILY FLONASE-52 SPRAY EACH NOSTRIL DAILY (3) Pulmonary hypertension: Comment: ECHOCARDIOGRAM SHOWS RVSP 40 MMHG . CONSISTENT WITH MILD PULMONARY HYPERTENSION. THIS IS SECONDARY TO HIS COPD AND CARDIAC ISSUES. Code(s): I27.20 - Pulmonary hypertension, unspecified Category: Medical Plan: CONTINUE THE CURRENT MEDICATIONS. MONITOR O2 SAT AT NIGHT, AND LONG IT STAYS ABOVE 92% IT IS OKAY. Medications: New nitroglycerin (Nitrostat) do not exceed 3 doses per episode 0.4 mg sublingual Q5M PRN 25 tabs 0RF chest pain/ANGINA 25 days Coding Level of Care Code Est Pt Level 3 (75286) Diagnoses COPD (chronic obstructive pulmonary disease) J44.9 Allergic rhinitis J30.9 Pulmonary hypertension I27.20
[2025-08-30 14:17] VITALS: BP 122/70; PULSE 77; O2SAT 96; BMI 28.4
== END 2025-08-30 14:40 | disposition home or self-care (01) ==
LOC: HO.HPS 14:00
PROVIDERS: PCP Internal Medicine; Visit Provider Internal Medicine
DX: J44.9 Chronic obstructive pulmonary disease, unspecified (principal); J30.9 Allergic rhinitis, unspecified; I27.20 Pulmonary hypertension, unspecified
CPT/HCPCS: 99213

== ENCOUNTER 2025-10-04 12:56 | Outpatient (AMB) | payer OTHER, SELFPAY ==
[2025-10-04 13:26] VITALS: BP 138/72; PULSE 67; BMI 29.5
--- NOTE | 2025-10-04 13:26 | A.OFFVIS_ITS ---
Vital Signs 10/04/25 13:26 Height 5 ft 8.11 in Weight 194 lb 14.218 oz BMI 29.5 BP 138/72 Blood Pressure Location Lt brachial Position Sitting Pulse 67 Pulse Source Pulse Oximeter Intake Visit Reasons: [facility] Nail Cutter Required: No Allergies sulfamethoxazole (From Bactrim) Adverse Reaction (Intermediate, Verified 10/04/25 13:30) hives trimethoprim (From Bactrim) Adverse Reaction (Intermediate, Verified 10/04/25 13:30) hives Medication List - Last Reconciled 10/04/25 by WENDI LyonsC albuterol sulfate 90 mcg/actuation (Ventolin HFA) 2 puffs inhalation Q4-6H PRN 30 days budesonide 0.5 mg (2 mL) inhalation BID fluticasone propionate 50 mcg/actuation 2 sprays intranasal DAILY metoprolol succinate ER 100 mg PO DAILY montelukast 10 mg PO DAILY nitroglycerin (Nitrostat) 0.4 mg sublingual Q5M PRN 25 days rivaroxaban (Xarelto) 20 mg PO DAILY tamsulosin 0.4 mg PO DAILY HPI HPI [facility]: Details: The patient is an 80 year old male presenting for follow up of atrial fibrillation. He has a history of difficult to control atrial fibrillation, tachy-harshal syndrome, and is status post AV juan ablation 2023 while in [place] and RAP Index pacemaker placement. He reports he has been in persistent atrial fibrillation for years and the pacemaker now controls his heart rate. A recent echocardiogram on 08/17/2025 revealed an ejection fraction of 30-35% and mild pulmonary hypertension. The patient reports symptoms consistent with reduced EF including getting winded with normal activities, shortness of breath, swollen legs, bloating, and weight gain. He also experiences dizziness and lightheadedness when bending over or standing for too long, and has difficulty breathing comfortably with one pillow or when lying on his back. He notes a nocturnal cough, which he also attributes to chronic rhinitis. The patient's past medical history also includes COPD and hypertension. He had a cardiac catheterization approximately 4 years ago at [facility] following a syncopal episode, which reportedly showed clean coronary arteries. His current medications include Metoprolol XL 100 mg and Xarelto. He reports no bleeding issues. [facility] Medical History (Updated 10/04/25 @ 17:58 by HEATH Lyons) Pacemaker Pulmonary hypertension Allergic rhinitis KARENA (obstructive sleep apnea) COPD (chronic obstructive pulmonary disease) Essential hypertension Atrial fibrillation Family History Father No problems noted. Mother Meningitis Social History Housing: Apartment Alcohol intake: current Alcohol intake frequency: does not drink Patient Tobacco Use Status: Former Tobacco user service: No Current occupational status: retired Cognitive needs: No Hearing needs: Yes (b/l hearing aids ) Vision needs: Yes (rx glasses) Review of Systems Const All systems reviewed & are unremarkable except as noted in HPI and below ENT Denies dizziness Card Denies chest pain, Denies chest pain at rest, Denies chest pain with activity, Denies rapid heart rate, Denies pedal edema, Denies edema, Denies leg edema, Denies lightheadedness, Denies palpitations, Reports dyspnea, Reports dyspnea on exertion and Denies orthopnea Resp Denies cough, Reports dyspnea and Reports dyspnea on exertion GI Denies hematochezia and Denies change in stool character Musc Denies abnormal gait, Denies limited range of motion, Denies muscle cramps, Denies muscle weakness, Denies numbness, Denies radiating pain into limb, Denies stiffness and Denies tingling Neuro Denies abnormal gait, Denies dizziness, Denies numbness and Denies tingling Endo Denies palpitations Physical Exam Vital Signs: Last Vital Signs Pulse 67 10/04/25 13:26 BP 138/72 10/04/25 13:26 BMI result Body Mass Index 29.5 Const General: cooperative, healthy appearing, comfortable and no acute distress Orientation/consciousness: patient oriented x3 Neck Neck: Yes normal visual inspection Resp Effort & Inspection: normal respiratory effort Auscultation: clear to auscultation bilaterally, no rales, no rhonchi and no wheezes Cardio Rate: regular rate Rhythm: regular rhythm Heart sounds: S1 normal heart sound present, S2 normal heart sound present, no gallops, no murmurs and no rubs Neuro General: patient oriented x3 Extrem General: Yes normal to inspection, No no pedal edema and No calf tenderness Psych Appearance: grossly normal Mental Status: mental status grossly normal Speech and movement: Normal speech and movement present Office Procedures Cardiac Device Check Cardiac Device Check Details: Today, VVI mode, RV threshold 1.3 volts at 0.4 milliseconds battery 5 years, base rate set at 80, reviewed with Dr. Pascual, will reduce him down to 70 and add rate response. [id number] Cardiac Device Check, pacemaker dual lead Procedure code (CPT) selection complete Assessment & Plan Assessment & Plan (1) Cardiomyopathy: Code(s): I42.9 - Cardiomyopathy, unspecified Category: Medical Plan: New finding of cardiomyopathy on recent echocardiogram. Patient reports no prior known history of reduced EF. He is reporting shortness of breath with exertion but does not appear fluid overloaded on exam. Will check a pharmacological nuclear stress test to assess for ischemia. Continue metoprolol and will add valsartan for neurohormonal modulation. He is concerned about high cost medications and is going to check with the pharmacist regarding Entresto. BMP, BNP in 1 week. Cardiology follow-up 4-6 weeks, sooner if needed. (2) Atrial fibrillation: Code(s): I48.91 - Unspecified atrial fibrillation Category: Medical Plan: History of chronic atrial fibrillation with difficult to control rates. 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 He is now on metoprolol. His pacemaker rate is still set at 80 beats per minute. Rate reduced down to 70 beats per minute after discussion with Dr. Pascual. She was confirmed to still be in chronic AFib. He is on Xarelto for anticoagulation. No bleeding issues reported. (3) Pulmonary hypertension: Code(s): I27.20 - Pulmonary hypertension, unspecified Category: Medical Plan: Mild pulmonary hypertension noted on echocardiogram. He does report shortness of breath with exertion. Checking nuclear stress test as above. (4) Hx of atrioventricular node ablation: Comment: in [place] - 2023 Code(s): Z98.890 - Other specified postprocedural states Category: Surgical Plan: As above (5) Pacemaker: Code(s): Z95.0 - Presence of cardiac pacemaker Category: Medical Plan: [place] scientific dual-chamber pacemaker interrogation today, device is functioning normally. AV lead not in use as he is in VVI mode due to AV node ablation. Base rate turned down from 80 down to 70 beats per minute. Plantar further reduced at follow-up visits. Remote monitoring in use. Next office interrogation due in 6 months. Plan I have reviewed the recent echocardiogram findings with the patient, explaining that his heart is pumping at about half the normal strength (EF 30-35%), which is classified as heart failure. I discussed how this condition is likely responsible for his symptoms of shortness of breath and fluid retention. I explained the treatment plan, which aims to optimize his medications to strengthen his heart and investigate the cause of its weakness. We will start with valsartan, an affordable medication, and he will get lab work in 1-2 weeks to ensure his kidneys tolerate it. I provided a card for Entresto and advised him to check with his pharmacy on the cost, as this is a preferred long-term option due to its superior benefit in strengthening the heart. I have also ordered a nuclear stress test and will request records of his prior cardiac catheterization from [facility]. The patient understands the plan and will sign a release for the medical records. Orders: Orders NM cardiolite stress test Today I42.9 - Cardiomyopathy, unspecified, I48.91 - Unspecified atrial fibrillation, Z95.0 - Presence of cardiac pacemaker Basic Metabolic Panel 1 Week I42.9 - Cardiomyopathy, unspecified CA lexiscan stress w macarena Today I42.9 - Cardiomyopathy, unspecified, I48.91 - Unspecified atrial fibrillation, Z95.0 - Presence of cardiac pacemaker NT Pro B Type Natriuretic Pept 1 Week I42.9 - Cardiomyopathy, unspecified Medications: New valsartan New 40 mg PO BID 60 tabs 2RF Patient Instructions: - Start taking the new medication, valsartan, as prescribed. - Continue taking your metoprolol and Xarelto. - You will need to get blood work done in one to two weeks to check on your kidneys after starting the new medicine. - A nuclear stress test has been ordered to check your heart. The hospital's scheduling department will call you to set up the appointment. - Please ask your pharmacist about the cost of a medicine called Entresto, as we may switch you to this in the future. - Our office will request your past heart records from [facility]. - A follow-up visit will be scheduled in the near future. Patient was informed and verbally consented to the use of an ambient scribe for clinic note documentation during this visit. Visit time spent on chart review, interview, assessment, orders, documentation. Coding Level of Care Code Est Pt Level 4 (31494) Add On Problem Visit Only Diagnoses Cardiomyopathy I42.9 Atrial fibrillation I48.91 Pulmonary hypertension I27.20 Hx of atrioventricular node ablation Z98.890 Pacemaker Z95.0 CPT Codes Cardiac Device Check - Cardiac Device 2: [id number] Cardiac Device Check, pacemaker dual lead ([id number]) Time Spent (min) 36
== END 2025-10-04 14:16 | disposition home or self-care (01) ==
LOC: HO.HCS 12:56
PROVIDERS: PCP Internal Medicine; Visit Provider Nurse Practitioner Family
DX: I42.9 Cardiomyopathy, unspecified (principal); I48.91 Unspecified atrial fibrillation; I27.20 Pulmonary hypertension, unspecified; Z98.890 Other specified postprocedural states; Z95.0 Presence of cardiac pacemaker
CPT/HCPCS: 93280; 99214; G2211

== ENCOUNTER → 2025-10-04 12:56 | Outpatient (BNVA) | payer OTHER, SELFPAY | PROVIDERS: PCP Internal Medicine; Visit Provider Nurse Practitioner Family | DX: I48.91 Unspecified atrial fibrillation (principal); I42.9 Cardiomyopathy, unspecified; I27.20 Pulmonary hypertension, unspecified; Z98.890 Other specified postprocedural states; Z95.0 Presence of cardiac pacemaker; Z79.899 Other long term (current) drug therapy; Z79.01 Long term (current) use of anticoagulants | CPT/HCPCS: 93280 ==

== ENCOUNTER → 2025-10-11 12:26 | Outpatient (BNV) | payer MEDICARE, SELFPAY | PROVIDERS: PCP Internal Medicine; Visit Provider Internal Medicine | DX: Z45.018 Encounter for adjustment and management of other part of cardiac pacemaker (principal) | CPT/HCPCS: 93297 ==